=== PATIENT | female | born 2000 | race Caucasian/White ===

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

== ENCOUNTER → 2022-06-24 | Outpatient (REF) | payer OTHER | LOC: M LAB REF 09:38 | PROVIDERS: ATTEND Physician Assistant | DX: J02.9 Acute pharyngitis, unspecified (principal) ==